=== PATIENT | female | born 1995 | race Caucasian/White ===

== ENCOUNTER 2017-11-23 12:31 | Emergency (ER) | payer MEDICAID ==
[~2017-11-23] VITALS: Ht 157.5 cm; Wt 76.7 kg
[2017-11-23 12:45] VITALS: BP 111/75
[2017-11-23] MEDS ORDERED: PREN-546 PO (12:48)
--- NOTE | 2017-11-23 14:10 | NUR ---
PT TO BED 4
--- NOTE | 2017-11-23 14:12 | NUR ---
22/F C/O SYNCOPE X2 DAYS; PT STATES SHE PASSED OUT WHILE WALKING AT [employer]. DENIES TRAUMA. HX ANEMIA. G-4 P-3; approximately 7 weeks . LMP 10/05/17. DENIES N/V/D; SKIN IS PINK/WARM/DRY; AAOX4 WITH EVEN AND STEADY GAIT; LUNGS CLEAR BL; HR EVEN AND REGULAR; PT DENIES ANY FEVER, CP, SOB, OR COUGH AT THIS TIME; PATIENT STATES PAIN OF 0/10 AT THIS TIME. PATIENT POSITIONED FOR COMFORT; HOB ELEVATED; BEDRAILS UP X2; BED DOWN. ER MD MADE AWARE OF PT STATUS.
[2017-11-23 14:14] LABS: BASOPHILS % (AUTO) 0.2 % (0.0-2.0); EOSINOPHILS % (AUTO) 0.4 % (0.0-4.0); HEMATOCRIT 40.6 % (36-48); HEMOGLOBIN 13.4 g/dL (12.0-16.0); LYMPHOCYTES # (AUTO) 1.5 K/uL (2.5-16.5); LYMPHOCYTES % (AUTO) 13.4 % (20.5-51.1); MEAN CORPUSCULAR HEMOGLOBIN 29 pg (27-31); MEAN CORPUSCULAR HGB CONC 33 g/dL (33-37); MEAN CORPUSCULAR VOLUME 87.9 fL (80-94); MONOCYTES # (AUTO) 0.7 K/uL (0.8-1.0); MONOCYTES % (AUTO) 6.5 % (1.7-9.3); NEUTROPHILS # (AUTO) 8.8 K/uL (1.8-7.7); NEUTROPHILS % (AUTO) 79.5 % (42.2-75.2); PLATELET COUNT (AUTO) 233 K/uL (140-450); RED BLOOD CELL COUNT(AUTO) 4.61 MIL/uL (4.20-5.40); RED CELL DISTRIBUTION WIDTH 14.7 % (11.6-13.7)
[2017-11-23 14:25] LABS: PROTHROMBIN TIME 10.1 secs (10.8-13.4)
[2017-11-23 15:52] LABS: APPEARANCE,URINE HAZY (CLEAR); BLOOD, URINE NEGATIVE (NEGATIVE); COLOR,URINE YELLOW (YELLOW); LEUKOCYTE ESTERASE ,URINE 1+ (NEGATIVE); NITRITE, URINE NEGATIVE (NEGATIVE); PH,URINE 5.5 (5.0-9.0); UGLUCOSE NEGATIVE (NEGATIVE)
--- NOTE | 2017-11-23 15:53 | NUR ---
Patient being evaluated by DR LIMON at bedside.
[2017-11-23 15:57] LABS: BILIRUBIN,URINE NEGATIVE (NEGATIVE)
[2017-11-23 15:59] LABS: RBC,URINE 0-5 (RARE) /HPF (0-5)
[2017-11-23 16:07] LABS: ANION GAP 16.2 (8-16); CARBON DIOXIDE 22.4 mmol/L (21-32); CREATININE 0.7 mg/dL (0.6-1.3); POTASSIUM 3.6 mmol/L (3.5-5.1)
[2017-11-23 16:14] LABS: ALBUMIN 3.6 g/dL (3.4-5.0); TOTAL BILIRUBIN 0.2 mg/dL (0.0-1.0)
[2017-11-23 17:09] VITALS: BP 120/68
== END 2017-11-23 17:10 | disposition home or self-care (01) ==
LOC: MED 12:31
DX: O26.891 Other specified pregnancy related conditions, first trimester (principal); R55 Syncope and collapse; O23.41 Unspecified infection of urinary tract in pregnancy, first trimester; Z3A.13 13 weeks gestation of pregnancy
CPT/HCPCS: 36415; 76801; 80053; 81001; 81025; 84702; 85025; 85610; 86900; 86901; 87086; 87186; 93005; 99285

== ENCOUNTER 2018-01-01 11:37 | Emergency (ER) | payer MEDICAID ==
[~2018-01-01] VITALS: Ht 157.5 cm; Wt 77.1 kg
[~2018-01-01 11:37] MED LIST: PREN-546 PO
[2018-01-01 11:46] VITALS: BP 124/68
--- NOTE | 2018-01-01 11:47 | NUR ---
REPORT GIVEN TO HOMERO HALL
--- NOTE | 2018-01-01 11:47 | NUR ---
PT AMBULATES TO BED 1
--- NOTE | 2018-01-01 11:50 | NUR ---
22Y/F C/O "FEELING LIKE FAINTING", HEAD ACHE, FEVER, NAUSEA X 1 MONTH SINCE SEEN HERE ON 11/23/2017 WITH SYNCOPAL EPISODE; 16 WKS , ; LMP 09/07/2017. AAOX4 WITH EVEN AND STEADY GAIT; VSS; PATIENT POSITIONED FOR COMFORT; HOB ELEVATED; BEDRAILS UP X1; BED DOWN. ER MD MADE AWARE OF PT STATUS.
[2018-01-01 13:30] VITALS: BP 118/64
== END 2018-01-01 13:30 | disposition home or self-care (01) ==
LOC: MED 11:37
DX: O23.42 Unspecified infection of urinary tract in pregnancy, second trimester (principal); Z3A.16 16 weeks gestation of pregnancy
CPT/HCPCS: 81002; 81025; 87086; 99283

== ENCOUNTER 2018-01-23 20:06 | Emergency (ER) | payer MEDICAID ==
[~2018-01-23] VITALS: Ht 157.5 cm; Wt 77.1 kg
[2018-01-23 20:18] VITALS: BP 111/63
--- NOTE | 2018-01-23 20:22 | NUR ---
TO BED # 6 AMBULATORY, REPORT GIVEN TO NEERU VALENTIN.
--- NOTE | 2018-01-23 20:30 | NUR ---
PATIENT IS A 22 Y/O FEMALE WHO PRESENTS TO THE ED FOR A WORK NOTE. PT COMES FROM OB. PT C/O OF NO ISSUES AT THIS TIME. US WAS DONE IN OB. . PT DENIES PAIN, CP, SOB, N/V/D. PT AAOX4, RR EVEN/UNLABORED. PT REPOSITIONED FOR COMFORT, BED IN LOWEST POSITION. ER MD DR. MONTIEL NOTIFIED. WILL CONTINUE TO MONITOR.
--- NOTE | 2018-01-23 20:50 | NUR ---
Dr. Cueva evaluating patient at bedside.
[2018-01-23 21:00] VITALS: BP 105/71
--- NOTE | 2018-01-23 21:00 | NUR ---
Patient discharged with v/s stable. Written and verbal after care instructions given and explained. Patient verbalized understanding. Ambulatory with steady gait. All questions addressed prior to discharge. Advised to follow up with PMD.
--- NOTE | 2018-01-23 21:00 | NUR ---
PT DC BY DR. MONTIEL.
== END 2018-01-23 21:00 | disposition home or self-care (01) ==
LOC: EDSTATUS 20:06 → MED 20:06
DX: O26.892 Other specified pregnancy related conditions, second trimester (principal); R10.9 Unspecified abdominal pain; Z3A.21 21 weeks gestation of pregnancy; Z79.899 Other long term (current) drug therapy
CPT/HCPCS: 76805; 81000; 99285; Q0092

== ENCOUNTER 2018-05-16 19:50 | Inpatient (IN) | payer MEDICAID, OTHER ==
[~2018-05-16] VITALS: Ht 157.5 cm; Wt 96.6 kg
[2018-05-16] MEDS ORDERED: TERBUTALINE 1 MG/ML VIAL SUBQ ONE (20:18)
[2018-05-16] MEDS: TERBUTALINE 1 MG/ML VIAL SUBQ SCH ×2 (20:30→20:52)
[2018-05-16 20:35] VITALS: BP 113/62
[2018-05-16 21:43] LABS: APPEARANCE,URINE CLEAR (CLEAR); BLOOD, URINE NEGATIVE (NEGATIVE); COLOR,URINE YELLOW (YELLOW); UGLUCOSE NEGATIVE (NEGATIVE)
[2018-05-16 21:44] LABS: BILIRUBIN,URINE NEGATIVE (NEGATIVE); LEUKOCYTE ESTERASE ,URINE NEGATIVE (NEGATIVE); NITRITE, URINE NEGATIVE (NEGATIVE)
== END 2018-05-16 23:15 | disposition home or self-care (01) | DRG 565 ==
LOC: MLD 19:50
PROVIDERS: ADMIT Obstetrics & Gynecology; ATTEND Obstetrics & Gynecology
DX: O47.9 False labor, unspecified (principal); Z3A.00 Weeks of gestation of pregnancy not specified
CPT/HCPCS: 76815; 81003; 87653-90; C1758; J3105

== ENCOUNTER 2018-05-23 21:15 | Inpatient (IN) | payer OTHER ==
[~2018-05-23] VITALS: Ht 157.5 cm; Wt 96.6 kg
[2018-05-23] MEDS ORDERED: NALBUPHINE 10 MG/ML AMP IVP PRN (21:40)
[2018-05-23] MEDS ORDERED: OXYTOCIN 10 UNITS/ML VIAL IM SCH (21:40)
[2018-05-23] MEDS ORDERED: PROMETHAZINE 25 MG/ML VIAL IVP PRN (21:40)
[2018-05-23] MEDS ORDERED: LACTATED RINGERS 500 ML IV ONE (21:40)
[2018-05-23] MEDS ORDERED: METHYLERGONOVINE 0.2 MG/ML AMP IM PRN (21:40)
[2018-05-23 22:07] VITALS: BP 117/61
[2018-05-23 22:35] LABS: BASOPHILS % (AUTO) 0.3 % (0.0-2.0); EOSINOPHILS # (AUTO) 0.1 K/uL (0-0.4); EOSINOPHILS % (AUTO) 0.7 % (0.0-4.0); HEMATOCRIT 33.7 % (36-48); LYMPHOCYTES # (AUTO) 2.4 K/uL (2.5-16.5); LYMPHOCYTES % (AUTO) 24.1 % (20.5-51.1); MEAN CORPUSCULAR HEMOGLOBIN 27 pg (27-31); MEAN CORPUSCULAR HGB CONC 33 g/dL (33-37); MEAN CORPUSCULAR VOLUME 83.9 fL (80-94); MONOCYTES # (AUTO) 0.8 K/uL (0.8-1.0); MONOCYTES % (AUTO) 8.4 % (1.7-9.3); NEUTROPHILS # (AUTO) 6.7 K/uL (1.8-7.7); NEUTROPHILS % (AUTO) 66.5 % (42.2-75.2); PLATELET COUNT (AUTO) 298 K/uL (140-450); RED BLOOD CELL COUNT(AUTO) 4.02 MIL/uL (4.20-5.40); RED CELL DISTRIBUTION WIDTH 15.9 % (11.6-13.7)
[2018-05-23 22:57] LABS: ALBUMIN 2.6 g/dL (3.4-5.0); ANION GAP 15.4 (8-16); CARBON DIOXIDE 23.2 mmol/L (21-32); CREATININE 0.6 mg/dL (0.6-1.3); POTASSIUM 3.6 mmol/L (3.5-5.1); TOTAL BILIRUBIN 0.2 mg/dL (0.0-1.0)
[2018-05-23] MEDS: LACTATED RINGERS 1,000 ML IV SCH (23:09)
[2018-05-24 00:44] LABS: APPEARANCE,URINE SLIGHTLY CLOUDY (CLEAR); BILIRUBIN,URINE NEGATIVE (NEGATIVE); BLOOD, URINE NEGATIVE (NEGATIVE); COLOR,URINE YELLOW (YELLOW); LEUKOCYTE ESTERASE ,URINE NEGATIVE (NEGATIVE); NITRITE, URINE NEGATIVE (NEGATIVE); UGLUCOSE NEGATIVE (NEGATIVE)
[2018-05-24 00:46] LABS: RBC,URINE 0-5 (RARE) /HPF (0-5); WBC,URINE 0-5 (RARE) /HPF (0-5)
[2018-05-24 00:47] LABS: CALCIUM OXALATE CRYSTALS,UR 0-3 /HPF (None Seen)
[2018-05-24 00:52] LABS: BARBITURATE, URINE NEG. ng/ml (NEG <=200); BENZODIAZEPINE, URINE NEG. ng/mL (NEG <=200); CANNABINOID, URINE NEG. ng/mL (NEG <=50); COCAINE, URINE NEG. ng/mL (NEG <=300); OPIATE, URINE NEG. ng/mL (NEG <=2000); PHENCYCLIDINE SCREEN,URINE NEG. ng/mL (NEG <=25)
[2018-05-24] MEDS ORDERED: OXYTOCIN 20 UNITS in LACTATED RINGERS 1,000 ML IV SCH ×5 (03:00→14:54)
[2018-05-24] MEDS ORDERED: OXYTOCIN 20 UNITS/LR PREMIX 1,000 ML IV ONE (04:18)
[2018-05-24] MEDS: LACTATED RINGERS 1,000 ML IV SCH ×3 (07:22→10:57)
[2018-05-24] MEDS ORDERED: ROPIVACAINE 0.2%/NS PREMIX 250 ML EPI ONE (08:41)
[2018-05-24] MEDS ORDERED: OXYTOCIN 10 UNITS/ML VIAL ONE (09:01)
[2018-05-24] MEDS ORDERED: ROPIVACAINE 0.2%/NS PREMIX 250 ML EPI SCH (09:15)
[2018-05-24 11:19] LABS: APPEARANCE,URINE CLEAR (CLEAR); BILIRUBIN,URINE NEGATIVE (NEGATIVE); BLOOD, URINE 1+ (NEGATIVE); COLOR,URINE YELLOW (YELLOW); UGLUCOSE NEGATIVE (NEGATIVE)
[2018-05-24 11:20] LABS: LEUKOCYTE ESTERASE ,URINE NEGATIVE (NEGATIVE); NITRITE, URINE NEGATIVE (NEGATIVE); RBC,URINE 11-20 (MOD) /HPF (0-5); WBC,URINE 0-5 (RARE) /HPF (0-5)
--- NOTE | 2018-05-24 11:35 | NUR ---
PATIENT HAS BEEN SCREENED AND CATEGORIZED LOW NUTRITION RISK. PATIENT WILL BE SEEN WITHIN 7 DAYS OF ADMISSION. 05/30/18 GI MOLINA MBA, RD
[2018-05-24] MEDS ORDERED: ACETAMINOPHEN 325 MG TAB PO PRN (14:55)
[2018-05-24] MEDS ORDERED: MEASLES, MUMPS, AND RUBELLA 1 VIAL SQVAC PRN (14:55)
[2018-05-24] MEDS ORDERED: BISACODYL 5 MG TABEC PO PRN (14:55)
[2018-05-24] MEDS ORDERED: DOCUSATE SODIUM 100 MG GELCAP PO PRN (14:55)
[2018-05-24] MEDS ORDERED: INFLUENZA VIRUS VACCINE QUAD 0.5 ML SYR IMVAC PRN ×2 (21:55→23:05)
[2018-05-24] MEDS: IBUPROFEN 600 MG TAB PO PRN (22:47)
[2018-05-25] MEDS: IBUPROFEN 600 MG TAB PO PRN ×2 (05:19→16:22)
[2018-05-25 09:04] LABS: BASOPHILS % (AUTO) 0.1 % (0.0-2.0); EOSINOPHILS # (AUTO) 0.1 K/uL (0-0.4); EOSINOPHILS % (AUTO) 0.8 % (0.0-4.0); HEMATOCRIT 30.9 % (36-48); LYMPHOCYTES # (AUTO) 2.6 K/uL (2.5-16.5); LYMPHOCYTES % (AUTO) 21.6 % (20.5-51.1); MEAN CORPUSCULAR HEMOGLOBIN 27 pg (27-31); MEAN CORPUSCULAR HGB CONC 33 g/dL (33-37); MEAN CORPUSCULAR VOLUME 84.3 fL (80-94); MONOCYTES # (AUTO) 0.9 K/uL (0.8-1.0); MONOCYTES % (AUTO) 7.6 % (1.7-9.3); NEUTROPHILS # (AUTO) 8.5 K/uL (1.8-7.7); NEUTROPHILS % (AUTO) 69.9 % (42.2-75.2); PLATELET COUNT (AUTO) 219 K/uL (140-450); RED BLOOD CELL COUNT(AUTO) 3.67 MIL/uL (4.20-5.40); RED CELL DISTRIBUTION WIDTH 15.6 % (11.6-13.7); WHITE BLOOD COUNT (AUTO) 12.2 K/uL (4.8-10.8)
[2018-05-26] MEDS: IBUPROFEN 600 MG TAB PO PRN (10:50)
== END 2018-05-26 15:15 | disposition home or self-care (01) | DRG 560 ==
LOC: MLD 21:15 → MFCC 05-24 17:30
PROVIDERS: ADMIT Obstetrics & Gynecology; ATTEND Obstetrics & Gynecology
PROC: 10E0XZZ Delivery of Products of Conception, External Approach (ICD-10-PCS; principal; 2018-05-24)
PROC: 10907ZC Drainage of Amniotic Fluid, Therapeutic from Products of Conception, Via Natural or Artificial Opening (ICD-10-PCS; 2018-05-24)
PROC: 00HU33Z Insertion of Infusion Device into Spinal Canal, Percutaneous Approach (ICD-10-PCS; 2018-05-24)
PROC: 3E0R3BZ Introduction of Anesthetic Agent into Spinal Canal, Percutaneous Approach (ICD-10-PCS; 2018-05-24)
PROC: 3E0234Z Introduction of Serum, Toxoid and Vaccine into Muscle, Percutaneous Approach (ICD-10-PCS; 2018-05-24)
PROC: 3E02340 Introduction of Influenza Vaccine into Muscle, Percutaneous Approach (ICD-10-PCS; 2018-05-24)
DX: O77.0 Labor and delivery complicated by meconium in amniotic fluid (principal); Z23 Encounter for immunization; Z37.0 Single live birth; Z3A.39 39 weeks gestation of pregnancy
CPT/HCPCS: 36415; 51702; 59409; 76815; 80053; 80305; 81001; 85025; 86592; 86762; 86886; 86900; 86901; 87086; 87340; 90658; 90715; J2590; J2795; J7120; Q0092

== ENCOUNTER 2018-12-22 08:34 | Emergency (ER) | payer OTHER ==
[~2018-12-22] VITALS: Ht 157.5 cm; Wt 76.4 kg
[2018-12-22 08:39] VITALS: BP 140/72
--- NOTE | 2018-12-22 08:47 | NUR ---
PT TO ER BED 8
--- NOTE | 2018-12-22 08:59 | NUR ---
PT C/O REPEATED N/V X SAT NIGHT AND LAST NIGHT LLQ PAIN NON RADIATING DENIES DYSURIA; DENIES BRIGHT RED BLOOD IN STOOL
[2018-12-22 09:02] LABS: APPEARANCE,URINE SL CLOUDY (CLEAR); BILIRUBIN,URINE NEGATIVE (NEGATIVE); BLOOD, URINE 1+ (NEGATIVE); COLOR,URINE YELLOW (YELLOW); LEUKOCYTE ESTERASE ,URINE TRACE (NEGATIVE); NITRITE, URINE NEGATIVE (NEGATIVE); UGLUCOSE NEGATIVE (NEGATIVE)
[2018-12-22 09:09] LABS: BARBITURATE, URINE NEG. ng/ml (NEG <=200); BENZODIAZEPINE, URINE NEG. ng/mL (NEG <=200); CANNABINOID, URINE POS. ng/mL (NEG <=50); COCAINE, URINE NEG. ng/mL (NEG <=300); OPIATE, URINE NEG. ng/mL (NEG <=2000); PHENCYCLIDINE SCREEN,URINE NEG. ng/mL (NEG <=25)
[2018-12-22] MEDS ORDERED: FAMOTIDINE 20 MG TAB PO ONE (09:10)
[2018-12-22] MEDS ORDERED: ONDANSETRON 4 MG ODT PO ONE (09:10)
[2018-12-22] MEDS ORDERED: METOCLOPRAMIDE 10 MG TAB PO ONE (09:10)
[2018-12-22] MEDS ORDERED: MECLIZINE 25 MG TAB PO ONE (09:10)
[2018-12-22 09:28] LABS: WBC,URINE 0-5 /HPF (0-5)
[2018-12-22 10:09] VITALS: BP 119/76
--- NOTE | 2018-12-22 10:09 | NUR ---
Patient discharged with v/s stable. Written and verbal after care instructions given and explained. Patient alert, oriented and verbalized understanding of instructions. Ambulatory with steady gait. All questions addressed prior to discharge. ID band removed. Patient advised to follow up with PMD. Rx of compazine/famotidine given. Patient educated on indication of medication including possible reaction and side effects. Opportunity to ask questions provided and answered.
== END 2018-12-22 10:09 | disposition home or self-care (01) ==
LOC: MED 08:34
DX: A08.4 Viral intestinal infection, unspecified (principal); Z79.899 Other long term (current) drug therapy
CPT/HCPCS: 80305; 81001; 81025; 99284; J8597; Q0162

== ENCOUNTER 2019-06-20 12:41 | Emergency (ER) | payer OTHER ==
[~2019-06-20] VITALS: Ht 157.5 cm; Wt 65.8 kg
[2019-06-20 12:57] VITALS: BP 120/94
--- NOTE | 2019-06-20 12:57 | NUR ---
PT TAKEN TO ER BED 04
--- NOTE | 2019-06-20 13:05 | NUR ---
PATIENT PRESENTS TO ED WITH 6 WEEKS GESTATION, C/O GEN WEAKNESS X 1 MONTH. DENIES N/V/D; SKIN IS PINK/WARM/DRY; DENIES ANY FEVER, CP, SOB, OR COUGH AT THIS TIME; DENIES PAIN, VSS; PATIENT POSITIONED FOR COMFORT; HOB ELEVATED; BEDRAILS UP X2; BED DOWN. ER MD MADE AWARE OF PT STATUS.
[2019-06-20] MEDS ORDERED: ONDANSETRON 4 MG/2 ML VIAL IVP ONE (13:20)
[2019-06-20] MEDS ORDERED: NACL 0.9% 1,000 ML IV ONE (13:20)
[2019-06-20 13:44] LABS: BASOPHILS % (AUTO) 0.7 % (0.0-2.0); EOSINOPHILS # (AUTO) 0.1 K/uL (0-0.4); EOSINOPHILS % (AUTO) 1.3 % (0.0-4.0); HEMATOCRIT 40.4 % (36-48); HEMOGLOBIN 13.6 g/dL (12.0-16.0); LYMPHOCYTES # (AUTO) 1.8 K/uL (2.5-16.5); LYMPHOCYTES % (AUTO) 34.3 % (20.5-51.1); MEAN CORPUSCULAR HEMOGLOBIN 31 pg (27-31); MEAN CORPUSCULAR HGB CONC 34 g/dL (33-37); MEAN CORPUSCULAR VOLUME 90.7 fL (80-94); MONOCYTES # (AUTO) 0.6 K/uL (0.8-1.0); MONOCYTES % (AUTO) 11.1 % (1.7-9.3); NEUTROPHILS # (AUTO) 2.8 K/uL (1.8-7.7); NEUTROPHILS % (AUTO) 52.6 % (42.2-75.2); PLATELET COUNT (AUTO) 257 K/uL (140-450); RED BLOOD CELL COUNT(AUTO) 4.45 MIL/uL (4.20-5.40); RED CELL DISTRIBUTION WIDTH 13.1 % (11.6-13.7); WHITE BLOOD COUNT (AUTO) 5.3 K/uL (4.8-10.8)
--- NOTE | 2019-06-20 13:50 | NUR ---
US AT BEDSIDE.
[2019-06-20 14:08] LABS: ANION GAP 13.7 (8-16); CARBON DIOXIDE 23.7 mmol/L (21-32); CREATININE 0.6 mg/dL (0.6-1.3); POTASSIUM 3.4 mmol/L (3.5-5.1); TOTAL BILIRUBIN 0.3 mg/dL (0.0-1.0)
--- NOTE | 2019-06-20 14:21 | NUR ---
IV INSERTED TO RIGHT AC, 20GA, IV BOLUS STARTED ORDERED, PATIENT TOLERATED WELL.
--- NOTE | 2019-06-20 15:00 | NUR ---
PATIENT STATED HUNGRY AND FEELING WEAKNESS, FOOD OFFERED.
[2019-06-20 16:48] VITALS: BP 122/93
--- NOTE | 2019-06-20 16:48 | NUR ---
Patient discharged BY DR. MONTIEL,Written and verbal after care instructions given and explained. Rx of MATTEO ROWLAND given. Patient educated on indication of medication including possible reaction and side effects. All questions addressed prior to discharge. ID band removed. Patient advised to follow up with PMD.
== END 2019-06-20 16:48 | disposition home or self-care (01) ==
LOC: MED 12:41
DX: O23.41 Unspecified infection of urinary tract in pregnancy, first trimester (principal); O21.8 Other vomiting complicating pregnancy; Z3A.08 8 weeks gestation of pregnancy; Z79.899 Other long term (current) drug therapy
CPT/HCPCS: 36415; 76801; 80053; 81002; 84702; 85025; 96361; 96374; 99284; J2405; J7030; Q0092

== ENCOUNTER 2019-08-20 10:16 | Emergency (ER) | payer OTHER ==
[~2019-08-20] VITALS: Ht 157.5 cm; Wt 68.5 kg
[2019-08-20 10:26] VITALS: BP 111/56
--- NOTE | 2019-08-20 10:34 | NUR ---
PT TO A[facility] JEFFERS, VS STABLE
--- NOTE | 2019-08-20 10:59 | NUR ---
PATIENT AMBULATED WITH STEADY GAIT TO BED 6.
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
[2019-08-20 12:13] LABS: BASOPHILS % (AUTO) 0.2 % (0.0-2.0); EOSINOPHILS # (AUTO) 0.1 K/uL (0-0.4); EOSINOPHILS % (AUTO) 0.9 % (0.0-4.0); HEMOGLOBIN 11.7 g/dL (12.0-16.0); LYMPHOCYTES # (AUTO) 1.4 K/uL (2.5-16.5); LYMPHOCYTES % (AUTO) 22.9 % (20.5-51.1); MEAN CORPUSCULAR HEMOGLOBIN 31 pg (27-31); MEAN CORPUSCULAR HGB CONC 34 g/dL (33-37); MEAN CORPUSCULAR VOLUME 91.3 fL (80-94); MONOCYTES # (AUTO) 0.5 K/uL (0.8-1.0); MONOCYTES % (AUTO) 7.6 % (1.7-9.3); NEUTROPHILS # (AUTO) 4.3 K/uL (1.8-7.7); NEUTROPHILS % (AUTO) 68.4 % (42.2-75.2); PLATELET COUNT (AUTO) 225 K/uL (140-450); RED BLOOD CELL COUNT(AUTO) 3.83 MIL/uL (4.20-5.40); RED CELL DISTRIBUTION WIDTH 13.5 % (11.6-13.7); WHITE BLOOD COUNT (AUTO) 6.3 K/uL (4.8-10.8)
[2019-08-20 12:21] LABS: ANION GAP 15.9 (8-16); CARBON DIOXIDE 21.5 mmol/L (21-32); CREATININE 0.4 mg/dL (0.6-1.3); POTASSIUM 3.4 mmol/L (3.5-5.1)
[2019-08-20 13:14] VITALS: BP 115/65
--- NOTE | 2019-08-20 13:15 | NUR ---
DR MACARENA NASSAR NOTIFIED.
[2019-08-20 14:35] LABS: APPEARANCE,URINE CLEAR (CLEAR); BILIRUBIN,URINE NEGATIVE (NEGATIVE); BLOOD, URINE NEGATIVE (NEGATIVE); COLOR,URINE YELLOW (YELLOW); LEUKOCYTE ESTERASE ,URINE TRACE (NEGATIVE); NITRITE, URINE NEGATIVE (NEGATIVE); UGLUCOSE NEGATIVE (NEGATIVE)
[2019-08-20 14:40] LABS: RBC,URINE 0 /HPF (0-5); WBC,URINE 0-5 /HPF (0-5)
== END 2019-08-20 13:15 | disposition left against medical advice (07) ==
LOC: MED 10:16
DX: Z34.92 Encounter for supervision of normal pregnancy, unspecified, second trimester (principal); Z3A.18 18 weeks gestation of pregnancy; Z79.899 Other long term (current) drug therapy
CPT/HCPCS: 36415; 76805; 80048; 81001; 81025; 84702; 85025; 86900; 86901; 99284; Q0092

== ENCOUNTER 2019-12-16 14:30 | Observation (INO) | payer MEDICAID, OTHER ==
[~2019-12-16] VITALS: Ht 157.5 cm; Wt 79.4 kg
[2019-12-16 14:58] VITALS: BP 103/63
[2019-12-16 17:15] LABS: APPEARANCE,URINE CLEAR (CLEAR); BILIRUBIN,URINE NEGATIVE (NEGATIVE); BLOOD, URINE NEGATIVE (NEGATIVE); LEUKOCYTE ESTERASE ,URINE NEGATIVE (NEGATIVE); NITRITE, URINE NEGATIVE (NEGATIVE); PH,URINE 7.5 (5.0-9.0); UGLUCOSE NEGATIVE (NEGATIVE)
[2019-12-16 17:18] LABS: COLOR,URINE YELLOW (YELLOW)
== END 2019-12-16 18:35 | disposition home or self-care (01) ==
LOC: MLD 14:30
PROVIDERS: ADMIT Obstetrics & Gynecology; ATTEND Obstetrics & Gynecology
DX: O26.893 Other specified pregnancy related conditions, third trimester (principal); R10.9 Unspecified abdominal pain; Z3A.36 36 weeks gestation of pregnancy
CPT/HCPCS: 81003; G0378

== ENCOUNTER 2020-01-08 21:30 | Observation (INO) | payer MEDICAID ==
[~2020-01-08] VITALS: Ht 157.5 cm; Wt 80.3 kg
[2020-01-08 22:28] VITALS: BP 111/61
== END 2020-01-09 00:40 | disposition home or self-care (01) ==
LOC: MFCC 21:30
PROVIDERS: ADMIT Obstetrics & Gynecology; ATTEND Obstetrics & Gynecology
DX: O62.9 Abnormality of forces of labor, unspecified (principal); Z3A.39 39 weeks gestation of pregnancy
CPT/HCPCS: G0378

== ENCOUNTER 2021-03-23 08:28 | Emergency (ER) | payer OTHER, SELFPAY ==
[~2021-03-23] VITALS: Ht 157.5 cm; Wt 77.1 kg
--- NOTE | 2021-03-23 08:47 | NUR ---
PATIENT NOT FOUND IN TENT AT THIS TIME
[2021-03-23 09:07] VITALS: BP 125/76
--- NOTE | 2021-03-23 09:21 | NUR ---
PATIENT PRESENTS TO ED WITH HEADACHE/SORE THROAT/COUGH X1 WEEK . . DENIES N/V/D; SKIN IS PINK/WARM/DRY; AAOX4 WITH EVEN AND STEADY GAIT; LUNGS CLEAR BL; HR EVEN AND REGULAR; PT DENIES ANY FEVER, CP, SOB AT THIS TIME; PATIENT STATES PAIN OF 4/10 AT THIS TIME; VSS; PATIENT POSITIONED FOR COMFORT; HOB ELEVATED; BEDRAILS UP X2; BED DOWN. ER MD MADE AWARE OF PT STATUS.
--- NOTE | 2021-03-23 09:44 | NUR ---
Novel coronavirus, influenza a&b, and RSV specimens collected and taken to the lab.
--- NOTE | 2021-03-23 12:15 | NUR ---
Unable to locate patient outside or in ER lobby.
--- NOTE | 2021-03-23 13:12 | NUR ---
PATIENT ELOPED FROM FACILITY. DISCHARGE INSTRUCTIONS NOT GIVEN TO PATIENT. DR. CAPPS NOTIFIED.
[2021-03-23 17:49] LABS: RSV NEGATIVE (NEGATIVE)
== END 2021-03-23 13:12 | disposition left against medical advice (07) ==
LOC: MED 08:28
DX: B34.9 Viral infection, unspecified (principal); Z20.822 Contact with and (suspected) exposure to COVID-19; F12.90 Cannabis use, unspecified, uncomplicated; Z79.899 Other long term (current) drug therapy
CPT/HCPCS: 87420; 87804; 99283; U0003

== ENCOUNTER 2021-04-03 19:47 | Emergency (ER) | payer OTHER, SELFPAY ==
[~2021-04-03] VITALS: Ht 157.5 cm; Wt 77.1 kg
[2021-04-03 20:07] VITALS: BP 126/88
--- NOTE | 2021-04-03 22:19 | NUR ---
PATIENT LEFT WITHOUT BEING SEEN BY DR. KINCAID. NO FURTHER CARE PROVIDED FOR PATIENT.
== END 2021-04-03 22:19 | disposition left against medical advice (07) ==
LOC: MED 19:47
DX: R50.9 Fever, unspecified (principal); Z53.21 Procedure and treatment not carried out due to patient leaving prior to being seen by health care provider

== ENCOUNTER 2021-04-05 08:04 | Emergency (ER) | payer OTHER ==
[~2021-04-05] VITALS: Ht 157.5 cm; Wt 76.7 kg
[2021-04-05 08:14] VITALS: BP 116/67
--- NOTE | 2021-04-05 08:15 | NUR ---
26 yo female with c/o generalized pressure-like abdominal pain x 2 days. Pt also complains of brownish emesis and diarrhea x2 days as well. Pt denies eating anything abdnormal and the pain randomly started. Pt stated she is also unable to keep any food or water down for the past 2 days. Upon assessment bowel sounds are hypoactive and pt has pain with palpation on her LUQ and LLQ lmp: mar 20, 2021. lbm today. pmh: none meds: none
--- NOTE | 2021-04-05 08:26 | NUR ---
Guerrero pavon in [facility] - 04/05/21 at 0832 by MED1 DIRECTOR OF INVESTIGATIONS AT BEDSIDE.
--- NOTE | 2021-04-05 08:30 | NUR ---
ELECTRICAL DESIGN TECHNICIAN BEDSIDE COLLECTING BLOOD WORK AND COLLECTED UA FROM [facility]
[2021-04-05 08:36] LABS: BASOPHILS % (AUTO) 0.2 % (0.0-2.0); EOSINOPHILS % (AUTO) 0.2 % (0.0-4.0); HEMATOCRIT 39.4 % (36-48); HEMOGLOBIN 12.9 g/dL (12.0-16.0); LYMPHOCYTES # (AUTO) 0.9 K/uL (2.5-16.5); LYMPHOCYTES % (AUTO) 6.3 % (20.5-51.1); MEAN CORPUSCULAR HEMOGLOBIN 28 pg (27-31); MEAN CORPUSCULAR HGB CONC 33 g/dL (33-37); MEAN CORPUSCULAR VOLUME 84.4 fL (80-94); MONOCYTES # (AUTO) 0.9 K/uL (0.8-1.0); MONOCYTES % (AUTO) 5.9 % (1.7-9.3); NEUTROPHILS # (AUTO) 12.8 K/uL (1.8-7.7); NEUTROPHILS % (AUTO) 87.4 % (42.2-75.2); PLATELET COUNT (AUTO) 258 K/uL (140-450); RED BLOOD CELL COUNT(AUTO) 4.67 MIL/uL (4.20-5.40); RED CELL DISTRIBUTION WIDTH 17.8 % (11.6-13.7); WHITE BLOOD COUNT (AUTO) 14.7 K/uL (4.8-10.8)
[2021-04-05 08:40] LABS: BILIRUBIN,URINE 1+ (NEGATIVE); BLOOD, URINE TRACE-I (NEGATIVE); COLOR,URINE YELLOW (YELLOW); LEUKOCYTE ESTERASE ,URINE NEGATIVE (NEGATIVE); NITRITE, URINE NEGATIVE (NEGATIVE); UGLUCOSE NEGATIVE (NEGATIVE)
[2021-04-05 08:51] LABS: ALBUMIN 3.8 g/dL (3.4-5.0); ANION GAP 18.7 (8-16); CARBON DIOXIDE 21.6 mmol/L (21-32); CREATININE 0.7 mg/dL (0.6-1.3); POTASSIUM 3.3 mmol/L (3.5-5.1); TOTAL BILIRUBIN 0.1 mg/dL (0.0-1.0)
[2021-04-05] MEDS ORDERED: NACL 0.9% 1,000 ML IV ONE (09:05)
[2021-04-05] MEDS ORDERED: ONDANSETRON 4 MG/2 ML VIAL IVP ONE (09:05)
[2021-04-05] MEDS ORDERED: LORazepam 2 MG/ML VIAL IVP ONE (09:05)
[2021-04-05 09:24] LABS: APPEARANCE,URINE HAZY (CLEAR); RBC,URINE 0-5 /HPF (0-5); WBC,URINE 0-5 /HPF (0-5)
--- NOTE | 2021-04-05 10:05 | NUR ---
provided pt with warm blanket bedside. also provided pt with small amount of water and emesis bag for po challenge. currently patient dies any nasuesa, but will continue to monitor
[2021-04-05] MEDS ORDERED: MAG-27 PO (10:42)
[2021-04-05] MEDS ORDERED: ONDA-24 SL (10:42)
--- NOTE | 2021-04-05 11:05 | NUR ---
Patient discharged with v/s stable. Written and verbal after care instructions given and explained. Patient alert, oriented and verbalized understanding of instructions. Ambulatory with steady gait. All questions addressed prior to discharge. ID band removed. Patient advised to follow up with PMD. Rx of JANETT GUTIÉRREZ given. Patient educated on indication of medication including possible reaction and side effects. Opportunity to ask questions provided and answered.
[2021-04-05 11:07] VITALS: BP 112/65
== END 2021-04-05 11:05 | disposition home or self-care (01) ==
LOC: MED 08:04
DX: R11.2 Nausea with vomiting, unspecified (principal); R19.7 Diarrhea, unspecified; R10.9 Unspecified abdominal pain; E87.6 Hypokalemia; F12.10 Cannabis abuse, uncomplicated
CPT/HCPCS: 36415; 80053; 81001; 81025; 83690; 85025; 96361; 96374; 96375; 99284; J2060; J2405; J7030

== ENCOUNTER 2022-01-16 08:28 | Emergency (ER) | payer OTHER ==
[~2022-01-16] VITALS: Ht 157.5 cm; Wt 69.2 kg
[~2022-01-16 08:28] MED LIST changes: +MAG-27 PO; +ONDA-188 SL
[2022-01-16 08:47] VITALS: BP 115/44
--- NOTE | 2022-01-16 09:10 | NUR ---
26 Y/O F BIB SELF C/O UTI S/S X1 WEEK PAIN 6/10 +DYSURIA. +HEMATURIA. DENIES FEVER/CHILLS. PT REPORTS URINARY "RETENTION X3 DAYS", PELVIC PAIN AND BACK PAIN. PT ALSO C/O COLD LIKE S/S. PMH:DENIES NKDA
[2022-01-16] MEDS ORDERED: NITR100C7 PO (09:39)
[2022-01-16] MEDS ORDERED: PHEN-1877 PO (09:39)
--- NOTE | 2022-01-16 09:54 | NUR ---
Patient discharged with v/s stable. Written and verbal after care instructions given and explained. Patient alert, oriented and verbalized understanding of instructions. Ambulatory with steady gait. All questions addressed prior to discharge. ID band removed. Patient advised to follow up with PMD. Rx of NITROFUIRANTOIN MONOHYD/M-CRYST, PHENAOPYRIDINE given. Opportunity to ask questions provided and answered.
--- NOTE | 2022-01-16 09:55 | NUR ---
The patient's care was reviewed and supervised by Mary Anne Robles RN.
== END 2022-01-16 09:54 | disposition home or self-care (01) ==
LOC: MED 08:28
DX: N39.0 Urinary tract infection, site not specified (principal)
CPT/HCPCS: 81002; 81025; 99283

== ENCOUNTER 2022-01-28 09:45 | Emergency (ER) | payer OTHER ==
[~2022-01-28] VITALS: Ht 157.5 cm; Wt 69.1 kg
[~2022-01-28 09:45] MED LIST changes: +NITR100C7 PO; +PHEN-1877 PO
[2022-01-28 10:03] VITALS: BP 114/58
[2022-01-28 10:54] LABS: APPEARANCE,URINE CLEAR (CLEAR); BILIRUBIN,URINE NEGATIVE (NEGATIVE); BLOOD, URINE NEGATIVE (NEGATIVE); COLOR,URINE YELLOW (YELLOW); LEUKOCYTE ESTERASE ,URINE TRACE (NEGATIVE); NITRITE, URINE NEGATIVE (NEGATIVE); UGLUCOSE NEGATIVE (NEGATIVE)
[2022-01-28 11:10] LABS: OTHER CASTS, URINE None Seen /LPF (None Seen); RBC,URINE 0-5 /HPF (0-5); WBC,URINE 0-5 /HPF (0-5)
[2022-01-28] MEDS ORDERED: IBUP-2213 PO (11:32)
[2022-01-28] MEDS ORDERED: CIPR500T4 PO (11:32)
[2022-01-28 11:40] VITALS: BP 116/61
== END 2022-01-28 11:40 | disposition home or self-care (01) ==
LOC: MED 09:45
DX: R30.0 Dysuria (principal); R10.30 Lower abdominal pain, unspecified; F12.90 Cannabis use, unspecified, uncomplicated; Z79.899 Other long term (current) drug therapy
CPT/HCPCS: 81001; 81025; 87086; 99283